=== PATIENT | female | born 1960 | race American Indian/Alaskan Native ===

== ENCOUNTER 2017-05-31 19:33 | Emergency (ER) | payer SELFPAY ==
--- NOTE | 2017-06-01 02:41 | XRay Report ---
FINAL REPORT PROCEDURE: XR KNEE 3V LT TECHNIQUE: Left knee radiographs, AP, lateral and sunrise views. CPT 37215 HISTORY: knee pain COMPARISON: No prior studies are available for comparison. FINDINGS: Fracture (s) and/or Dislocation(s): None . Alignment: Normal . Joint space(s): Normal . Soft tissues: Normal . Bone mineralization: Normal . Foreign bodies: None . IMPRESSION: Normal Examination.
[2017-06-01] MEDS ORDERED: PERCOCET 5/325 PO ONE (02:47)
--- NOTE | 2017-06-01 02:48 | Emergency Department Report ---
ED Extremity Problem HPI - General Chief complaint: Extremity Problem,Nontraumatic Stated complaint: L KNEE SWELLING/PAIN Time Seen by Provider: 06/01/17 02:39 Source: patient, family Mode of arrival: Ambulatory Limitations: No Limitations - History of Present Illness Initial comments: Patient reports that she is having extremity problem. She says she has a history of multiple sclerosis and she has a primary care physician. She says she is having left knee pain and swelling since this morning. She says that she 's been complaining in the left foot and left leg tingling for 2 weeks to her primary care physician. Patient uses a cane due to multiple sclerosis and she said she is off balance. She says she's been coughing and sneezing for one week. Denies any fever or chills. Denies any shortness of breath or chest pain. Denies nausea or vomiting. Pain to left knee is 7 out of 10. Forced that she is having some nasal congestion with runny nose. Denies any facial pain. Denies any headache or blurred vision. Denies any recent travel by car or airplane long distance, denies any history of blood clots personally or in her family, denies hormonal therapy. Denies any recent surgery or prolonged bedrest. MD Complaint: joint swelling, joint paint, other (coughing and sneezing) -: This morning Location: left, knee History of Same: Yes -: No myalgia, Yes arthralgia, No fever, No associated dyspnea, No associated chest pain Severity scale (0 -10): 7 Quality: aching Consistency: intermittent Improves with: immobilization, rest Worsens with: weight bearing, walking Associated Symptoms: arthralgias. denies: chest pain, shortness of breath, fever, myalgias, rash - Related Data Previous Rx's Medication Instructions Recorded Last Taken Type Acetaminophen/Codeine [Tylenol #3] 1 tab PO Q6H PRN #20 tab 03/18/14 Unknown Rx Naproxen Sodium (Nf) [Anaprox DS] 550 mg PO BID PRN #14 tablet 03/18/14 Unknown Rx HYDROcodone/APAP 5-325 [[place] 1 each PO Q6HR PRN #20 tablet 05/12/16 Unknown Rx 5/325] Cetirizine HCl [ZyrTEC] 10 mg PO QDAY #14 capsule 06/01/17 Unknown Rx Fluticasone [Flonase] 1 spray NS QDAY #1 bottle 06/01/17 Unknown Rx traMADol [Ultram] 50 mg PO Q6HR PRN #5 tablet 06/01/17 Unknown Rx Allergies Allergy/AdvReac Type Severity Reaction Status Date / Time Penicillins Allergy Rash Verified 03/18/14 09:25 ED Review of Systems ROS: Stated complaint: L KNEE SWELLING/PAIN Other details as noted in HPI Comment: All other systems reviewed and negative Constitutional: denies: chills, fever Eyes: denies: eye discharge ENT: congestion. denies: ear pain, throat pain Respiratory: cough. denies: orthopnea, shortness of breath, SOB with exertion, SOB at rest, stridor, wheezing Cardiovascular: denies: chest pain, palpitations, dyspnea on exertion, orthopnea , edema, syncope Gastrointestinal: denies: abdominal pain, nausea, vomiting, diarrhea, constipation Musculoskeletal: joint swelling, arthralgia. denies: back pain, myalgia Skin: denies: rash Neurological: paresthesias (tingling to left foot and leg.denies any swelling to her foot or leg.Deniesany swelling to her calf or pain to her calf), abnormal gait (chronic due to multiple sclerosis). denies: headache, vertigo ED Past Medical Hx - Past Medical History Previous Medical History?: Yes Hx Hypertension: Yes Hx Diabetes: No Hx Headaches / Migraines: Yes Additional medical history: acid reflux, high cholesterol, brain lesion, ms - Surgical History Past Surgical History?: Yes Additional Surgical History: hysterectomy, hemorrhoids - Family History Family history: hypertension - Social History Smoking Status: Never Smoker Substance Use Type: None Other Social History: single - Medications Home Medications: Home Medications Medication Instructions Recorded Confirmed Last Taken Type Acetaminophen/Codeine [Tylenol #3] 1 tab PO Q6H PRN #20 tab 03/18/14 Unknown Rx Naproxen Sodium (Nf) [Anaprox DS] 550 mg PO BID PRN #14 tablet 03/18/14 Unknown Rx HYDROcodone/APAP 5-325 [[place] 1 each PO Q6HR PRN #20 tablet 05/12/16 Unknown Rx 5/325] Cetirizine HCl [ZyrTEC] 10 mg PO QDAY #14 capsule 06/01/17 Unknown Rx Fluticasone [Flonase] 1 spray NS QDAY #1 bottle 06/01/17 Unknown Rx traMADol [Ultram] 50 mg PO Q6HR PRN #5 tablet 06/01/17 Unknown Rx ED Physical Exam - General Limitations: No Limitations General appearance: alert, in no apparent distress - Head Head exam: Present: atraumatic, normocephalic, normal inspection - Eye Eye exam: Present: normal appearance, PERRL, EOMI. Absent: periorbital swelling , periorbital tenderness Pupils: Present: normal accommodation - ENT ENT exam: Present: normal orophraynx, mucous membranes moist, other (Biilateral nasal mucosa erythema and congested. No sinus tenderness.). Absent: TM's normal bilaterally (lateral TM congested without erythema), normal external ear exam - Neck Neck exam: Present: normal inspection, full ROM. Absent: tenderness, meningismus, lymphadenopathy - Respiratory Respiratory exam: Present: normal lung sounds bilaterally. Absent: respiratory distress, wheezes, rales, rhonchi, stridor, chest wall tenderness, accessory muscle use, decreased breath sounds - Cardiovascular Cardiovascular Exam: Present: regular rate, normal rhythm, normal heart sounds - GI/Abdominal GI/Abdominal exam: Present: soft, normal bowel sounds. Absent: distended, tenderness, guarding, rebound, rigid - Extremities Exam Extremities exam: Present: normal inspection, full ROM, normal capillary refill , joint swelling. Absent: tenderness, pedal edema, calf tenderness - Expanded Lower Extremity Exam Left Hip exam: Present: normal inspection, full ROM, pelvic stability. Absent: tenderness, swelling, abrasion, laceration, ecchymosis, deformity, crepidus, dislocation, erythema, external rotation, internal rotation, shortening Upper Leg exam: Present: normal inspection, full ROM. Absent: tenderness, swelling, abrasion, laceration, ecchymosis, deformity, crepidus, dislocation, erythema Knee exam: Present: full ROM, tenderness, swelling, full knee extension. Absent : abrasion, laceration, ecchymosis, deformity, crepidus, dislocation, erythema ( normal temperature to knee), effusion, pain w/ pronation/supination, pain/ laxity with valgus, pain/laxity with varus Lower Leg exam: Present: normal inspection, full ROM. Absent: tenderness, swelling, abrasion, laceration, ecchymosis, deformity, crepidus, dislocation, erythema, palpable cord, Rahat's sign Ankle exam: Present: normal inspection, full ROM. Absent: tenderness, swelling , abrasion, laceration, ecchymosis, deformity, crepidus, dislocation, erythema Foot/Toe exam: Present: normal inspection, full ROM. Absent: tenderness, swelling, abrasion, laceration, ecchymosis, deformity, crepidus, dislocation, erythema, amputation, puncture wound, foreign body, calcaneal tenderness, tenderness at base of 5th metatarsal, nail avulsion, subungual hematoma Neuro vascular tendon exam: Present: no vascular compromise, motor deficit (C has multiple sclerosis and uses a cane.). Absent: pulse deficit, abnormal cap refill, sensory deficit, tendon deficit, extremity cold to touch, pallor, abnormal 2-point discrimination, decreased fine/light touch, foot drop, peroneal nerve deficit, significant pain with passive ROM of distal joint Gait: Positive: observed and limited by pain - Back Exam Back exam: Present: normal inspection, full ROM. Absent: tenderness, CVA tenderness (R), CVA tenderness (L), muscle spasm, paraspinal tenderness, vertebral tenderness, rash noted - Neurological Exam Neurological exam: Present: alert, oriented X3, abnormal gait (normal gait which is chronic and she uses a cane due to multiple sclerosis and weakness in her lower extremity), reflexes normal - Psychiatric Psychiatric exam: Present: normal affect, normal mood - Skin Skin exam: Present: warm, dry, intact, normal color. Absent: rash ED Course Vital Signs 05/31/17 20:14 Temperature 98.5 F Pulse Rate 83 Respiratory 18 Rate Blood Pressure 155/96 O2 Sat by Pulse 99 Oximetry - Reevaluation(s) Reevaluation #1: 06/01/17 03:39 Given Percocet 5/325 2 tablets in the emergency room for left knee pain. - Orthopedic Splinting/Casting Injury #1 Side: left Lower Extremity Injury Location: knee Lower Extremity Immobilizer: Tony wrap ED Medical Decision Making - Radiology Data Radiology results: report reviewed X-ray of left knee revealed no acute fracture or dislocation. No bony abnormality is no joint effusion and joint spaces are normal. - Medical Decision Making MDM: Assessment/plan ED course: here for left knee pain and swelling that started this morning. Also complaining of coughing and sneezing for a week. Syrup or chills patient without any bony abnormality, soft tissue swelling or joint effusion.. Tony wrap placed through left knee for immobilization and patient to follow-up with Dr. Rosenthal orthopedic doctor to call to schedule an appointment in the morning. I told pt that she has sinusitis which is inflammation of the sinus and this is usually viral and I will place her on Zyrtec and Flonase. Discussed with her daughter knee x-ray did not show any fluid on her knee, bony abnormalities or soft tissue swelling. Patient voiced understanding the discharge diagnosis and treatment plan. She was given pain medication in emergency room which alleviated her pain. Diagnostic/labs: X-ray of right knee revealed no acute fracture or dislocation , no soft tissue swelling or effusion. Diagnosis: Acute cough, sinus inflammation, Arthralgia rt knee Procedure: tony wrap left knee Meds: percocet 5/325 mg 2 tabs. Prescription for ultam , flonase and zyrtec Follow-up with orthopedic Dr. Rosenthal call office in the morning to schedule an appointment. Rest, ice, compress and elevate affected knee Take Zyrtec and Flonase for sinusitis Ultram for knee pain and please remember not to drive or operate any heavy machinery while on this medication. And discharged home in stable condition with her friend Critical care attestation.: If time is entered above; I have spent that time in minutes in the direct care of this critically ill patient, excluding procedure time. ED Disposition Clinical Impression: Arthralgia of knee, left, Cough in adult Acute inflammation of nasal sinus Qualifiers: Sinusitis location: unspecified location Recurrence: not specified as recurrent Qualified Code(s): J01.90 - Acute sinusitis, unspecified Disposition: DC-01 TO HOME OR SELFCARE Is pt being admited?: No Does the pt Need Aspirin: No Condition: Stable Instructions: Arthralgia (ED), Acute Cough (ED), Sinusitis (ED) Additional Instructions: Follow-up with orthopedic Dr. Rosenthal call office in the morning to schedule an appointment. Rest, ice, compress and elevate affected knee Follow up with pcp Take Zyrtec and Flonase for sinusitis Ultram for knee pain and please remember not to drive or operate any heavy machinery while on this medication. Prescriptions: Cetirizine HCl [ZyrTEC] 10 mg PO QDAY #14 capsule Fluticasone [Flonase] 1 spray NS QDAY #1 bottle traMADol [Ultram] 50 mg PO Q6HR PRN #5 tablet PRN Reason: Pain Referrals: PRIMARY CARE, [Primary Care Provider] - 06/02/17 QUINTIN ROSENTHAL MD [Staff Physician] - 3-5 Days Forms: Accompanied Note, Work/School Release Form(ED)
[2017-06-01 04:53] VITALS: BP 117/82
== END 2017-06-01 03:30 | disposition home or self-care (01) ==
LOC: ED 19:33
DX: M25.562 Pain in left knee (principal); R05 Cough; I10 Essential (primary) hypertension; K21.9 Gastro-esophageal reflux disease without esophagitis; E78.00 Pure hypercholesterolemia, unspecified; Z88.0 Allergy status to penicillin
CPT/HCPCS: 99283

== ENCOUNTER 2018-02-24 19:02 | Emergency (ER) | payer SELFPAY ==
[2018-02-24 19:14] VITALS: BP 122/79
--- NOTE | 2018-02-24 19:59 | XRay Report ---
FINAL REPORT EXAM: XR FINGER(S) 2+V RT HISTORY: pt exp. finger swelling TECHNIQUE: Right 3rd finger three views PRIORS: None. FINDINGS: There is some mild hyperextension at the DIP joint the right 3rd finger PIP joint is unremarkable. No acute fracture identified. No dislocation seen. Joint spaces are otherwise within normal limits. IMPRESSION: Mild hyperextension of the DIP joint 3rd finger could reflect flexor tendon injury
--- NOTE | 2018-02-24 21:01 | Emergency Department Report ---
ED Upper Extremity Inj HPI - General Chief Complaint: Extremity Injury, Upper Stated Complaint: FINGER SWELLING Time Seen by Provider: 02/24/18 21:00 Source: patient Mode of arrival: Ambulatory Limitations: No Limitations - History of Present Illness Initial Comments: This is a 58 y.o. female that presents with pain and swelling to third finger on right hand. Patient states she was talking on the phone and noticed her finger was swollen and she couldn't bend it. She don't recall injury. She cut up a lot of meat earlier today and think that could possibly be the cause. Admits to swelling and redness to 3rd right finger. Denies injury, numbness/tingling, and deformity. Complaint: Injury to:: right (3rd finger on right hand) -: This afternoon Other Extremity Injury: Fingers: Right (3rd digit, swelling and redness) Other Injuries: none Handedness: right Place: home Severity scale (0 -10): 5 Improves With: none Worsens With: movement of extremity Context: other (unknown) Associated Symptoms: denies other symptoms - Related Data Previous Rx's Medication Instructions Recorded Last Taken Type Acetaminophen/Codeine [Tylenol #3] 1 tab PO Q6H PRN #20 tab 03/18/14 Unknown Rx Naproxen Sodium (Nf) [Anaprox DS] 550 mg PO BID PRN #14 tablet 03/18/14 Unknown Rx HYDROcodone/APAP 5-325 [[place] 1 each PO Q6HR PRN #20 tablet 05/12/16 Unknown Rx 5/325] Cetirizine HCl [ZyrTEC] 10 mg PO QDAY #14 capsule 06/01/17 Unknown Rx Fluticasone [Flonase] 1 spray NS QDAY #1 bottle 06/01/17 Unknown Rx traMADol [Ultram] 50 mg PO Q6HR PRN #5 tablet 06/01/17 Unknown Rx Naproxen [Naprosyn] 500 mg PO TID PRN #15 tablet 02/24/18 Unknown Rx Allergies Allergy/AdvReac Type Severity Reaction Status Date / Time Penicillins Allergy Rash Verified 03/18/14 09:25 ED Review of Systems ROS: Stated complaint: FINGER SWELLING Other details as noted in HPI Constitutional: denies: chills, fever Respiratory: denies: cough, shortness of breath, wheezing Cardiovascular: denies: chest pain, palpitations, edema, syncope Gastrointestinal: denies: abdominal pain, nausea, vomiting, diarrhea Musculoskeletal: joint swelling (3rd right digit), arthralgia (3rd right digit swelling and pain) Skin: change in color (redness and swelling to right 3rd digit). denies: rash, lesions Neurological: denies: headache, weakness, numbness, paresthesias Psychiatric: denies: anxiety, depression ED Past Medical Hx - Past Medical History Hx Hypertension: Yes Hx Diabetes: No Hx Headaches / Migraines: Yes Additional medical history: acid reflux, high cholesterol, brain lesion, ms - Surgical History Past Surgical History?: Yes Additional Surgical History: hysterectomy, hemorrhoids - Social History Smoking Status: Never Smoker Substance Use Type: None - Medications Home Medications: Home Medications Medication Instructions Recorded Confirmed Last Taken Type Acetaminophen/Codeine [Tylenol #3] 1 tab PO Q6H PRN #20 tab 03/18/14 Unknown Rx Naproxen Sodium (Nf) [Anaprox DS] 550 mg PO BID PRN #14 tablet 03/18/14 Unknown Rx HYDROcodone/APAP 5-325 [[place] 1 each PO Q6HR PRN #20 tablet 05/12/16 Unknown Rx 5/325] Cetirizine HCl [ZyrTEC] 10 mg PO QDAY #14 capsule 06/01/17 Unknown Rx Fluticasone [Flonase] 1 spray NS QDAY #1 bottle 06/01/17 Unknown Rx traMADol [Ultram] 50 mg PO Q6HR PRN #5 tablet 06/01/17 Unknown Rx Naproxen [Naprosyn] 500 mg PO TID PRN #15 tablet 02/24/18 Unknown Rx ED Physical Exam - General Limitations: No Limitations General appearance: alert, in no apparent distress - Respiratory Respiratory exam: Present: normal lung sounds bilaterally. Absent: respiratory distress, wheezes, rales, rhonchi, stridor, accessory muscle use - Cardiovascular Cardiovascular Exam: Present: regular rate, normal rhythm, normal heart sounds. Absent: systolic murmur, diastolic murmur, rubs, gallop - GI/Abdominal GI/Abdominal exam: Present: soft, normal bowel sounds. Absent: distended, tenderness, guarding, rebound, rigid, organomegaly, mass - Expanded Upper Extremity Exam Right Shoulder Exam: Present: normal inspection, full ROM Upper Arm exam: Present: normal inspection, full ROM Elbow exam: Present: normal inspection, full ROM Forearm Wrist exam: Present: normal inspection, full ROM Hand Wrist exam: Present: normal inspection, full ROM Hand L/R Back: 1 - Proximal DIP joint flexion at rest, erythma, swelling, slip at PIP joint Neuro motor exam: Present: wrist extension intact, thumb opposition intact, thumb IP flexion intact, thumb adduction intact. Absent: fingers 2-5 abduction intact Neurosensory exam: Present: ulnar nerve intact, median nerve intact Vascular: Present: vascular compromise, normal capillary refill, radial pulse (2 ) - Neurological Exam Neurological exam: Present: alert, oriented X3, normal gait - Psychiatric Psychiatric exam: Present: normal affect, normal mood - Skin Skin exam: Present: warm, dry, intact, normal color, erythema. Absent: rash ED Course Vital Signs 02/24/18 19:10 Pulse Rate 75 Respiratory 16 Rate Blood Pressure 122/79 O2 Sat by Pulse 96 Oximetry ED Medical Decision Making - Radiology Data Radiology results: report reviewed XR right finger: Mild hyperextension of the DIP joint 3rd finger could reflect flexor tendon injury - Medical Decision Making This is a 58 y.o. female that presents with swelling, redness, and pain to 3rd digit of unknown cause today. Patient is stable and examined by me. Vitals stable. No acute signs of distress noted. Xray of right fingers obtained and read by radiologist. Mild hyperextension of the DIP joint 3rd finger could reflect flexor tendon injury. Splint applied to finger. Follow up with Orthopedic Surgery in 2-3 days. Discussed plan to start naproxen for pain and to f/u with Ortho for Mallet finger. Discussed s/s of delayed improvement or injury. Patient agrees to ED plan of care. Critical care attestation.: If time is entered above; I have spent that time in minutes in the direct care of this critically ill patient, excluding procedure time. ED Disposition Clinical Impression: Mallet finger of right finger(s) Disposition: TO HOME OR SELFCARE Is pt being admited?: No Does the pt Need Aspirin: No Condition: Stable Instructions: Jammed Finger (ED) Additional Instructions: Avoid over use of right hand. Take naproxen every 6 hours as needed for pain. Keep splint in place to prevent injury. Follow up with Orthopedic Surgery 2-3 days. Prescriptions: Naproxen [Naprosyn] 500 mg PO TID PRN #15 tablet PRN Reason: Pain Referrals: QUINTIN HERRON MD [Staff Physician] - 3-5 Days [facility] [Provider Group] - 3-5 Days [facility] [Provider Group] - 3-5 Days Time of Disposition: 21:48 Print Language: SWAZI
== END 2018-02-24 21:48 | disposition home or self-care (01) ==
LOC: ED 19:02
DX: M20.011 Mallet finger of right finger(s) (principal); Z88.0 Allergy status to penicillin
CPT/HCPCS: 99283

== ENCOUNTER 2019-11-30 11:19 | Emergency (ER) | payer MEDICARE ==
[2019-11-30] MEDS ORDERED: KETOROLAC 30 MG/1 ML INJ IM ONE (11:47)
--- NOTE | 2019-11-30 12:07 | Emergency Department Report ---
ED General Adult HPI - General Chief complaint: Neuro Symptoms/Deficit Stated complaint: SEVERE HEADACHE/NUMBNESS Time Seen by Provider: 11/30/19 11:36 Source: patient, EMS Mode of arrival: Stretcher Limitations: No Limitations - History of Present Illness Initial comments: This is a 59-year-old female with a history of chronic headaches. Initially she told me that she had not had a headache for a long time. But later she explained to me that she had an MRI done approximately one month ago. She states that she had a very brief sharp pain in the left side of her head and then a "headache". Neither the sharp pain with the headache was particularly severe. She denied nausea vomiting photophobia and sonophobia neurological change or neck symptoms. He went to her primary care doctor who's name begins with a "H" near [facility]. She states that she was not seen by the doctor but an ambulance was called to transported to the emergency. She states that her MR test result has not been reviewed with her. I'm not yet certain as to why they chose to call EMS so precipitously. On my encounter the patient is in no distress whatsoever. She does not refer any focal neurological change. I attempted to contact the [facility] but just received voicemails. Review of previous records are indicative of a normal CT 2015. There was an order for an MRI by Dr. Hernández a neurologist but no images found or report. Patient states she is not currently under the care of a neurologist. She states she takes no medicine for migraine although she has been previously diagnosed. She denies taking any medication for MS or an established diagnosis thereof. -: Gradual Location: head Radiation: non-radiation Quality: aching Consistency: now resolved (largely) Improves with: none Worsens with: none Associated Symptoms: denies other symptoms - Related Data Previous Rx's Medication Instructions Recorded Last Taken Type Acetaminophen/Codeine [Tylenol #3] 1 tab PO Q6H PRN #20 tab 03/18/14 Unknown Rx Naproxen Sodium (Nf) [Anaprox DS] 550 mg PO BID PRN #14 tablet 03/18/14 Unknown Rx HYDROcodone/APAP 5-325 [[place] 1 each PO Q6HR PRN #20 tablet 05/12/16 Unknown Rx 5/325] Cetirizine HCl [ZyrTEC] 10 mg PO QDAY #14 capsule 06/01/17 Unknown Rx Fluticasone [Flonase] 1 spray NS QDAY #1 bottle 06/01/17 Unknown Rx traMADoL [Ultram] 50 mg PO Q6HR PRN #5 tablet 06/01/17 Unknown Rx Naproxen [Naprosyn] 500 mg PO TID PRN #15 tablet 02/24/18 Unknown Rx Butalb/Acetaminophen/Caffeine 1 cap PO Q6HR PRN #10 cap 11/30/19 Unknown Rx [Fioricet 50-300-40 mg CAP] Allergies Allergy/AdvReac Type Severity Reaction Status Date / Time Penicillins Allergy Rash Verified 03/18/14 09:25 ED Review of Systems ROS: Stated complaint: SEVERE HEADACHE/NUMBNESS Other details as noted in HPI Constitutional: denies: chills, fever Eyes: denies: eye pain, eye discharge, vision change ENT: denies: ear pain, throat pain Respiratory: denies: cough, shortness of breath, wheezing Cardiovascular: denies: chest pain, palpitations Endocrine: no symptoms reported Gastrointestinal: denies: abdominal pain, nausea, diarrhea Genitourinary: denies: urgency, dysuria, discharge Musculoskeletal: denies: back pain, joint swelling, arthralgia Skin: denies: rash, lesions Neurological: headache. denies: weakness, numbness, paresthesias, confusion, abnormal gait, vertigo Psychiatric: denies: anxiety, depression Hematological/Lymphatic: denies: easy bleeding, easy bruising ED Past Medical Hx - Past Medical History Hx Hypertension: Yes Hx Diabetes: No Hx Headaches / Migraines: Yes Additional medical history: acid reflux, high cholesterol, brain lesion, ms - Surgical History Additional Surgical History: hysterectomy, hemorrhoids - Social History Smoking Status: Never Smoker Substance Use Type: None - Medications Home Medications: Home Medications Medication Instructions Recorded Confirmed Last Taken Type Acetaminophen/Codeine [Tylenol #3] 1 tab PO Q6H PRN #20 tab 03/18/14 Unknown Rx Naproxen Sodium (Nf) [Anaprox DS] 550 mg PO BID PRN #14 tablet 03/18/14 Unknown Rx HYDROcodone/APAP 5-325 [[place] 1 each PO Q6HR PRN #20 tablet 05/12/16 Unknown Rx 5/325] Cetirizine HCl [ZyrTEC] 10 mg PO QDAY #14 capsule 06/01/17 Unknown Rx Fluticasone [Flonase] 1 spray NS QDAY #1 bottle 06/01/17 Unknown Rx traMADoL [Ultram] 50 mg PO Q6HR PRN #5 tablet 06/01/17 Unknown Rx Naproxen [Naprosyn] 500 mg PO TID PRN #15 tablet 02/24/18 Unknown Rx Butalb/Acetaminophen/Caffeine 1 cap PO Q6HR PRN #10 cap 11/30/19 Unknown Rx [Fioricet 50-300-40 mg CAP] ED Physical Exam - General Limitations: No Limitations General appearance: alert, in no apparent distress - Head Head exam: Present: atraumatic, normocephalic - Eye Eye exam: Present: normal appearance, PERRL, EOMI. Absent: scleral icterus - ENT ENT exam: Present: mucous membranes moist - Neck Neck exam: Present: normal inspection. Absent: tenderness, meningismus - Respiratory Respiratory exam: Present: normal lung sounds bilaterally. Absent: respiratory distress - Cardiovascular Cardiovascular Exam: Present: regular rate, normal rhythm. Absent: systolic murmur, diastolic murmur, rubs, gallop - GI/Abdominal GI/Abdominal exam: Present: soft, normal bowel sounds. Absent: distended, tenderness, guarding - Extremities Exam Extremities exam: Present: normal inspection - Back Exam Back exam: Present: normal inspection - Neurological Exam Neurological exam: Present: alert, oriented X3, CN II-XII intact, other (seen by confrontation. Cerebellar testing was normal.). Absent: motor sensory deficit - Psychiatric Psychiatric exam: Present: normal affect, normal mood - Skin Skin exam: Present: warm, dry, intact, normal color. Absent: rash ED Course Vital Signs 11/30/19 11/30/19 11:33 13:56 Temperature 97.9 F Pulse Rate 60 Respiratory 18 18 Rate Blood Pressure 151/83 O2 Sat by Pulse 96 96 Oximetry - Reevaluation(s) Reevaluation #1: Headache improved. Patient appropriate for outpatient follow-up. 11/30/19 14:11 ED Medical Decision Making - Radiology Data Radiology results: report reviewed (CT head negative per radiologist), image reviewed (CT head looks normal to me. Awaiting radiology interpretation.) Critical care attestation.: If time is entered above; I have spent that time in minutes in the direct care of this critically ill patient, excluding procedure time. ED Disposition Clinical Impression: Cephalalgia Qualifiers: Headache type: unspecified Headache chronicity pattern: acute headache Intractability: not intractable Qualified Code(s): R51 - Headache Disposition: DC-01 TO HOME OR SELFCARE Is pt being admited?: No Does the pt Need Aspirin: No Condition: Stable Instructions: Acute Headache (ED) Additional Instructions: Follow-up on your MRI tests with your primary care physician. Return to the emergency department any acute change or problem. Prescriptions: Butalb/Acetaminophen/Caffeine [Fioricet 50-300-40 mg CAP] 1 cap PO Q6HR PRN #10 cap PRN Reason: Headache Referrals: usual, primary care physician [Other] - 3-5 Days Time of Disposition: 14:12
--- NOTE | 2019-11-30 13:58 | Cat Scan Report ---
CT head/brain wo con INDICATION / CLINICAL INFORMATION: 59 years Female; headache. TECHNIQUE: Routine CT head without contrast. All CT scans at this location are performed using CT dos e reduction for ALARA by means of automated exposure control. COMPARISON: 05/12/2016 FINDINGS: BRAIN / INTRACRANIAL CONTENTS: No acute hemorrhage, mass effect, midline shift, hydrocephalus, or acu te, large territorial infarct. No chronic infarct or atrophy appreciated. No significant white matter abnormality. CRANIOCERVICAL JUNCTION: No significant abnormality. ORBITS: No significant abnormality of visualized orbits. SINUSES / MASTOIDS: Minimal mucosal thickening in the ethmoids and mastoids. ADDITIONAL FINDINGS: None. IMPRESSION: 1. No focal mass, hemorrhage, hydrocephalus, or acute, large territorial infarct. Signer Name: Francisco Stoll MD, III Signed: 11/30/2019 1:53 PM Workstation Name: [id number]
[2019-11-30 18:51] VITALS: BP 142/81
== END 2019-11-30 14:22 | disposition home or self-care (01) ==
LOC: ED 11:19
DX: R51 Headache (principal); I10 Essential (primary) hypertension; Z90.710 Acquired absence of both cervix and uterus; Z79.899 Other long term (current) drug therapy; Z88.0 Allergy status to penicillin
CPT/HCPCS: 70450; 96372; 99284; J1885